=== PATIENT | female | born 1935 | race Two or more races ===

== ENCOUNTER 2023-07-25 13:38 | Inpatient (IN) | payer OTHER ==
[~2023-07-25] VITALS: Ht 147.3 cm; Wt 49.0 kg
[2023-07-25 13:39] VITALS: BP 159/89; PULSE 71; RESP 32; TEMP 97; O2SAT 100
[2023-07-25 14:14] LABS: BLOOD GAS BASE EXCESS -1.3 mmol/L (-2.0-2.0); BLOOD GAS HCO3 22.8 mmol/L (22-26); BLOOD GAS PCO2 35.4 mmHg (35-45); BLOOD GAS PH 7.426 (7.35-7.45)
[2023-07-25 14:15] LABS: BLOOD GAS O2 SAT% 98.8 % (92.0-98.5)
[2023-07-25 14:30] LABS: BASOPHILS % (AUTO) 0.2 % (0.0-2.0); HEMATOCRIT 24.3 % (36-48); HEMOGLOBIN 8.2 g/dL (12.0-16.0); LYMPHOCYTES # (AUTO) 0.6 K/uL (2.5-16.5); LYMPHOCYTES % (AUTO) 5.5 % (20.5-51.1); MEAN CORPUSCULAR HEMOGLOBIN 31 pg (27-31); MEAN CORPUSCULAR HGB CONC 34 g/dL (33-37); MEAN CORPUSCULAR VOLUME 90.8 fL (80-94); MONOCYTES # (AUTO) 0.8 K/uL (0.8-1.0); MONOCYTES % (AUTO) 7.4 % (1.7-9.3); NEUTROPHILS # (AUTO) 9.4 K/uL (1.8-7.7); NEUTROPHILS % (AUTO) 86.9 % (42.2-75.2); PLATELET COUNT (AUTO) 168 K/uL (140-450); RED BLOOD CELL COUNT(AUTO) 2.68 MIL/uL (4.20-5.40); WHITE BLOOD COUNT (AUTO) 10.8 K/uL (4.8-10.8)
[2023-07-25] MEDS ORDERED: PIPERACILLIN/TAZOBACTAM 3.375 GM in DEXTROSE 5% 50 ML IV ONE (14:30)
[2023-07-25] MEDS ORDERED: PIPERACILLIN/TAZOBACTAM 3.375 GM VIAL IV ONE (14:35)
[2023-07-25 14:38] LABS: ANION GAP 12.2 (8-16); CALCIUM 8.8 mg/dL (8.5-10.1); CARBON DIOXIDE 24.8 mmol/L (21-32); CHLORIDE 98 mmol/L (98-107); GLUCOSE 98 mg/dL (74-106); SODIUM SERUM 132 mmol/L (136-145); UREA NITROGEN, BLOOD 20 mg/dL (7-18)
[2023-07-25 14:46] LABS: LACTIC ACID 1.3 mmol/L (0.4-2.0)
[2023-07-25 15:01] LABS: ALANINE AMINOTRANSFERASE 24 U/L (12-78); ALBUMIN 2.6 g/dL (3.4-5.0); ALKALINE PHOSPHATASE 65 U/L (50-136); ASPARTATE AMINOTRANSFERASE 34 U/L (15-37); BILIRUBIN,DIRECT 0.2 mg/dL (0.0-0.3); TOTAL BILIRUBIN 0.6 mg/dL (0.0-1.0); TOTAL PROTEIN, SERUM 6.6 g/dL (6.4-8.2)
[2023-07-25] MEDS ORDERED: FUROSEMIDE 40 MG/4 ML VIAL IVP ONE (15:20)
[2023-07-25] MEDS ORDERED: ASPIRIN 325 MG TAB PO ONE (15:20)
[2023-07-25] MEDS ORDERED: KCL 20 MEQ IN 100 mL PREMIX 200 ML IV ONE (15:20)
[2023-07-25] MEDS ORDERED: ONDANSETRON 4 MG/2 ML VIAL IVP PRN (18:55)
[2023-07-25] MEDS ORDERED: MAGNESIUM OXIDE 400 MG TAB PO PRN (18:55)
[2023-07-25] MEDS ORDERED: POTASSIUM CHL 40 MEQ/ D5-1/2NS 1,000 ML IV SCH (18:55)
[2023-07-25] MEDS ORDERED: MAG SULF 2000 MG/WATER PREMIX 50 ML IV PRN (18:55)
[2023-07-25] MEDS ORDERED: KCL 20 MEQ IN 100 mL PREMIX 200 ML IV PRN (18:55)
[2023-07-25] MEDS ORDERED: ACETAMINOPHEN 325 MG TAB PO PRN (18:55)
[2023-07-25] MEDS ORDERED: LORazepam 1 MG TAB PO PRN (18:55)
[2023-07-25] MEDS ORDERED: POTASSIUM CHLORIDE 10 MEQ TABER PO PRN (18:55)
[2023-07-25] MEDS ORDERED: HYDR200T65 PO (19:21)
[2023-07-25] MEDS ORDERED: DICY10CA2 PO (19:21)
[2023-07-25] MEDS ORDERED: PRED5TAB8 PO (19:21)
[2023-07-25] MEDS ORDERED: XAR10 PO (19:46)
[2023-07-25] MEDS ORDERED: LEFL20TA18 PO (19:46)
[2023-07-25] MEDS ORDERED: OMEP20EC11 PO (19:46)
[2023-07-25 19:56] VITALS: PULSE 75; RESP 22; O2SAT 96; O2SAT 99
[2023-07-25] MEDS: ALBUTEROL SULFATE/IPRATROPIU 3 ML SOL IH SCH (19:56)
[2023-07-25 22:18] LABS: APPEARANCE,URINE CLEAR (CLEAR); BILIRUBIN,URINE NEGATIVE (NEGATIVE); BLOOD, URINE NEGATIVE (NEGATIVE); COLOR,URINE YELLOW (YELLOW); LEUKOCYTE ESTERASE ,URINE NEGATIVE (NEGATIVE); NITRITE, URINE NEGATIVE (NEGATIVE); PROTEIN,URINE NEGATIVE (NEGATIVE); UGLUCOSE NEGATIVE (NEGATIVE); UROBILINOGEN,URINE 0.2 EU/dL (0.2 - 1)
[2023-07-25 23:14] LABS: FLU A ANTIGEN negative (NEGATIVE); FLU B ANTIGEN negative (NEGATIVE)
[2023-07-26] VITALS (9 sets, daily range): BP systolic 135–181; BP diastolic 53–69; PULSE 77–95; RESP 18–24; TEMP 96.8–98.3; O2SAT 92–98
[2023-07-26] MEDS ORDERED: PIPERACILLIN/TAZOBACTAM 3.375 GM VIAL IV ONE ×2 (00:34→06:27)
[2023-07-26] MEDS: PIPERACILLIN/TAZOBACTAM 3.375 GM in DEXTROSE 5% 50 ML IV SCH ×4 (00:38→17:38)
[2023-07-26] MEDS: ALBUTEROL SULFATE/IPRATROPIU 3 ML SOL IH SCH ×4 (00:44→19:42)
[2023-07-26] MEDS ORDERED: ENOXAPARIN 40 MG/0.4 ML SYR SUBQ SCH (09:00)
[2023-07-26 09:39] LABS: BASOPHILS % (AUTO) 0.3 % (0.0-2.0); EOSINOPHILS % (AUTO) 0.2 % (0.0-4.0); HEMATOCRIT 24.8 % (36-48); HEMOGLOBIN 8.2 g/dL (12.0-16.0); LYMPHOCYTES # (AUTO) 0.6 K/uL (2.5-16.5); LYMPHOCYTES % (AUTO) 4.9 % (20.5-51.1); MEAN CORPUSCULAR HEMOGLOBIN 30 pg (27-31); MEAN CORPUSCULAR HGB CONC 33 g/dL (33-37); MEAN CORPUSCULAR VOLUME 91.3 fL (80-94); MONOCYTES # (AUTO) 0.5 K/uL (0.8-1.0); MONOCYTES % (AUTO) 3.7 % (1.7-9.3); NEUTROPHILS # (AUTO) 11.7 K/uL (1.8-7.7); NEUTROPHILS % (AUTO) 90.9 % (42.2-75.2); PLATELET COUNT (AUTO) 168 K/uL (140-450); RED BLOOD CELL COUNT(AUTO) 2.72 MIL/uL (4.20-5.40); RED CELL DISTRIBUTION WIDTH 15.9 % (11.6-13.7); WHITE BLOOD COUNT (AUTO) 12.8 K/uL (4.8-10.8)
[2023-07-26] MEDS: DOCUSATE SODIUM 100 MG GELCAP PO SCH (09:51)
[2023-07-26 10:01] LABS: ALANINE AMINOTRANSFERASE 20 U/L (12-78); ALBUMIN 2.4 g/dL (3.4-5.0); ALKALINE PHOSPHATASE 68 U/L (50-136); ANION GAP 12.6 (8-16); ASPARTATE AMINOTRANSFERASE 35 U/L (15-37); CALCIUM 8.9 mg/dL (8.5-10.1); CARBON DIOXIDE 25.6 mmol/L (21-32); CHLORIDE 100 mmol/L (98-107); CREATININE 1.2 mg/dL (0.6-1.3); GLUCOSE 69 mg/dL (74-106); MAGNESIUM 1.6 mg/dL (1.8-2.4); POTASSIUM 3.2 mmol/L (3.5-5.1); SODIUM SERUM 135 mmol/L (136-145); TOTAL BILIRUBIN 0.7 mg/dL (0.0-1.0); TOTAL PROTEIN, SERUM 6.4 g/dL (6.4-8.2); UREA NITROGEN, BLOOD 24 mg/dL (7-18)
[2023-07-26] MEDS ORDERED: CARV25TA PO (14:03)
[2023-07-26] MEDS ORDERED: SPIR50TA PO (14:03)
[2023-07-26] MEDS ORDERED: hydrALAZINE 25 MG TAB PO PRN (14:40)
[2023-07-26] MEDS: FUROSEMIDE 40 MG/4 ML VIAL IVP SCH ×2 (17:36→21:00)
[2023-07-27] VITALS (8 sets, daily range): BP systolic 151–164; BP diastolic 68–89; PULSE 82–120; RESP 18–22; TEMP 97.4–98.3; O2SAT 91–98
[2023-07-27] MEDS: ALBUTEROL SULFATE/IPRATROPIU 3 ML SOL IH SCH ×3 (00:17→14:02)
[2023-07-27] MEDS: PIPERACILLIN/TAZOBACTAM 3.375 GM in DEXTROSE 5% 50 ML IV SCH ×3 (00:40→12:00)
[2023-07-27 05:43] LABS: BASOPHILS % (AUTO) 0.1 % (0.0-2.0); EOSINOPHILS % (AUTO) 0.1 % (0.0-4.0); HEMATOCRIT 24.5 % (36-48); HEMOGLOBIN 8.2 g/dL (12.0-16.0); LYMPHOCYTES # (AUTO) 0.6 K/uL (2.5-16.5); LYMPHOCYTES % (AUTO) 4.5 % (20.5-51.1); MEAN CORPUSCULAR HEMOGLOBIN 30 pg (27-31); MEAN CORPUSCULAR HGB CONC 34 g/dL (33-37); MEAN CORPUSCULAR VOLUME 90.5 fL (80-94); MONOCYTES # (AUTO) 0.5 K/uL (0.8-1.0); NEUTROPHILS # (AUTO) 12.4 K/uL (1.8-7.7); NEUTROPHILS % (AUTO) 91.3 % (42.2-75.2); PLATELET COUNT (AUTO) 169 K/uL (140-450); RED BLOOD CELL COUNT(AUTO) 2.71 MIL/uL (4.20-5.40); RED CELL DISTRIBUTION WIDTH 16.2 % (11.6-13.7); WHITE BLOOD COUNT (AUTO) 13.6 K/uL (4.8-10.8)
[2023-07-27 06:47] LABS: ALANINE AMINOTRANSFERASE 19 U/L (12-78); ALBUMIN 2.3 g/dL (3.4-5.0); ALKALINE PHOSPHATASE 65 U/L (50-136); ANION GAP 15.6 (8-16); ASPARTATE AMINOTRANSFERASE 32 U/L (15-37); CARBON DIOXIDE 23.8 mmol/L (21-32); CHLORIDE 98 mmol/L (98-107); GLUCOSE 67 mg/dL (74-106); MAGNESIUM 1.5 mg/dL (1.8-2.4); POTASSIUM 3.4 mmol/L (3.5-5.1); SODIUM SERUM 134 mmol/L (136-145); TOTAL BILIRUBIN 0.9 mg/dL (0.0-1.0); TOTAL PROTEIN, SERUM 6.6 g/dL (6.4-8.2); UREA NITROGEN, BLOOD 22 mg/dL (7-18)
[2023-07-27] MEDS ORDERED: ENOXAPARIN 30 MG/0.3 ML SYR SUBQ SCH (09:00)
[2023-07-27] MEDS: DOCUSATE SODIUM 100 MG GELCAP PO SCH (11:22)
[2023-07-27] MEDS: FUROSEMIDE 40 MG/4 ML VIAL IVP SCH (11:23)
[2023-07-27] MEDS ORDERED: FURO20TA8 PO ×2 (11:30→16:34)
[2023-07-27] MEDS ORDERED: AMOX-999 PO ×2 (11:45→16:34)
[2023-07-27] MEDS ORDERED: LACT10CA PO (11:45)
[2023-07-27] MEDS ORDERED: ALBUTEROL SULFATE/IPRATROPIU 3 ML SOL IH ONE (14:20)
[2023-07-27] MEDS ORDERED: predniSONE 5 MG TAB PO SCH (16:03)
[2023-07-27] MEDS ORDERED: ALBU117P INH (16:32)
[2023-07-27] MEDS ORDERED: PRED20TA5 PO (16:32)
[2023-07-27] MEDS ORDERED: carvediloL 12.5 MG TAB PO SCH (21:00)
[2023-07-28] MEDS ORDERED: predniSONE 5 MG TAB PO SCH (09:00)
[2023-07-28] MEDS ORDERED: SPIRONOLACTONE 50 MG TAB PO SCH (09:00)
[2023-07-28] MEDS ORDERED: RIVAROXABAN 10 MG TAB PO SCH (09:00)
== END 2023-07-27 17:00 | disposition home or self-care (01) | DRG 280 ==
LOC: MED 13:38 → MTU 19:20
PROVIDERS: ADMIT Hospitalist; ATTEND Hospitalist
DX: I13.0 Hypertensive heart and chronic kidney disease with heart failure and stage 1 through stage 4 chronic kidney disease, or unspecified chronic kidney disease (principal); I21.4 Non-ST elevation (NSTEMI) myocardial infarction; I50.43 Acute on chronic combined systolic (congestive) and diastolic (congestive) heart failure; J15.9 Unspecified bacterial pneumonia; J96.01 Acute respiratory failure with hypoxia; J18.9 Pneumonia, unspecified organism; N17.9 Acute kidney failure, unspecified; R65.10 Systemic inflammatory response syndrome (SIRS) of non-infectious origin without acute organ dysfunction; I43 Cardiomyopathy in diseases classified elsewhere; Z20.822 Contact with and (suspected) exposure to COVID-19; I50.9 Heart failure, unspecified; N18.30 Chronic kidney disease, stage 3 unspecified; R62.7 Adult failure to thrive; Z88.5 Allergy status to narcotic agent; Z68.22 Body mass index [BMI] 22.0-22.9, adult
CPT/HCPCS: 36415; 36600; 71045; 71250; 80048; 80053; 80076; 81003; 82803; 83605; 83735; 83880; 84484; 85025; 87040; 87081; 87086; 93005; 94640; 96361; 96365; 96375; 97163-GP; 97530; 99291; J1650; J1940; J2543; J3475; J3480; J7060; J7512

== ENCOUNTER 2023-12-22 12:12 | Inpatient (IN) | payer OTHER ==
[~2023-12-22] VITALS: Ht 149.9 cm; Wt 48.8 kg
[~2023-12-22 12:12] MED LIST: ALBU117P INH; AMOX-999 PO; CARV25TA PO; DICY10CA2 PO; FURO20TA8 PO; HYDR-5458 PO; LACT10CA PO; LEFL20TA22 PO; OMEP20EC11 PO; PRED20TA5 PO; PRED5TAB8 PO; SPIR50TA PO; XAR10 PO
[2023-12-22 12:17] VITALS: BP 150/73; PULSE 70; RESP 20; TEMP 94.5; O2SAT 98
[2023-12-22] MEDS: NACL 0.9% 1,000 ML IV ONE (12:35)
[2023-12-22 12:50] LABS: BASOPHILS # (AUTO) 0.1 K/uL (0.00-0.22); BASOPHILS % (AUTO) 3.3 % (0.0-2.0); EOSINOPHILS # (AUTO) 0.2 K/uL (0-0.4); EOSINOPHILS % (AUTO) 3.9 % (0.0-4.0); HEMATOCRIT 31.8 % (36-48); HEMOGLOBIN 10.5 g/dL (12.0-16.0); LYMPHOCYTES # (AUTO) 0.6 K/uL (2.5-16.5); LYMPHOCYTES % (AUTO) 15.3 % (20.5-51.1); MEAN CORPUSCULAR HEMOGLOBIN 28 pg (27-31); MEAN CORPUSCULAR HGB CONC 33 g/dL (33-37); MEAN CORPUSCULAR VOLUME 84.6 fL (80-94); MONOCYTES # (AUTO) 0.3 K/uL (0.8-1.0); MONOCYTES % (AUTO) 7.6 % (1.7-9.3); NEUTROPHILS # (AUTO) 2.7 K/uL (1.8-7.7); NEUTROPHILS % (AUTO) 69.9 % (42.2-75.2); PLATELET COUNT (AUTO) 156 K/uL (140-450); RED BLOOD CELL COUNT(AUTO) 3.76 MIL/uL (4.20-5.40); WHITE BLOOD COUNT (AUTO) 3.8 K/uL (4.8-10.8)
[2023-12-22 12:53] LABS: BILIRUBIN,URINE NEGATIVE (NEGATIVE); BLOOD, URINE NEGATIVE (NEGATIVE); COLOR,URINE YELLOW (YELLOW); LEUKOCYTE ESTERASE ,URINE 1+ (NEGATIVE); NITRITE, URINE NEGATIVE (NEGATIVE); PROTEIN,URINE 1+ (NEGATIVE); UGLUCOSE NEGATIVE (NEGATIVE); UROBILINOGEN,URINE 0.2 EU/dL (0.2 - 1)
[2023-12-22 12:54] LABS: APPEARANCE,URINE SLIGHTLY CLOUDY (CLEAR)
[2023-12-22 13:03] LABS: BACTERIA,URINE 10-30 (MOD) /HPF (None Seen); RBC,URINE 0-5 /HPF (0-5); SQUAMOUS EPITHELIAL CELL,UR 0-3 (FEW) /LPF (0-3 (FEW))
[2023-12-22 13:09] LABS: INR 0.99 (0.8-1.2); PARTIAL THROMBOPLASTIN TIME 24.5 secs (22-35.6); PROTHROMBIN TIME 10.4 secs (10.8-13.4)
[2023-12-22 13:14] LABS: ANION GAP 15.8 (8-16); CALCIUM 8.7 mg/dL (8.5-10.1); CHLORIDE 98 mmol/L (98-107); CREATININE 1.1 mg/dL (0.6-1.3); GLUCOSE 125 mg/dL (74-106); POTASSIUM 3.8 mmol/L (3.5-5.1); SODIUM SERUM 129 mmol/L (136-145); UREA NITROGEN, BLOOD 23 mg/dL (7-18)
[2023-12-22 13:20] LABS: ALANINE AMINOTRANSFERASE 21 U/L (12-78); ALKALINE PHOSPHATASE 104 U/L (50-136); ASPARTATE AMINOTRANSFERASE 20 U/L (15-37); BILIRUBIN,DIRECT 0.1 mg/dL (0.0-0.3); CREATINE KINASE, TOTAL 80 U/L (26-192); TOTAL BILIRUBIN 0.4 mg/dL (0.0-1.0); TOTAL PROTEIN, SERUM 6.2 g/dL (6.4-8.2)
[2023-12-22] MEDS ORDERED: cefTRIAXone 1,000 MG VIAL ONE (14:50)
[2023-12-22] MEDS ORDERED: ONDANSETRON 4 MG/2 ML VIAL IVP PRN (15:00)
[2023-12-22] MEDS ORDERED: ACETAMINOPHEN 325 MG TAB PO PRN (15:00)
[2023-12-22] MEDS ORDERED: MORPHINE SULFATE 2 MG/ML SYR IVP PRN (15:00)
[2023-12-22] MEDS: ACETAMINOPHEN EXTRA STRENGTH 500 MG TAB PO ONE (15:11)
[2023-12-22] MEDS: KETOROLAC 30 MG/ML VIAL IVP ONE (15:17)
[2023-12-22] MEDS: NACL 0.9% 1,000 ML IV SCH (15:23)
[2023-12-22 20:00] VITALS: BP 150/66; PULSE 71; RESP 18; TEMP 97.6; O2SAT 97
[2023-12-22] MEDS ORDERED: HYDR-3233 PO (23:26)
[2023-12-22] MEDS ORDERED: ALPOS OP (23:26)
[2023-12-22] MEDS ORDERED: XALOS OP (23:26)
[2023-12-22] MEDS ORDERED: FOS70 PO (23:26)
[2023-12-22] MEDS ORDERED: POTA10TA70 PO (23:26)
[2023-12-22] MEDS ORDERED: LOSA-272 PO (23:26)
[2023-12-23] VITALS (7 sets, daily range): BP systolic 141–186; BP diastolic 59–78; PULSE 75–93; RESP 16–18; TEMP 97.5–98.4; O2SAT 95–98
[2023-12-23 06:49] LABS: BASOPHILS # (AUTO) 0.1 K/uL (0.00-0.22); BASOPHILS % (AUTO) 2.4 % (0.0-2.0); EOSINOPHILS # (AUTO) 0.1 K/uL (0-0.4); EOSINOPHILS % (AUTO) 3.1 % (0.0-4.0); HEMATOCRIT 28.1 % (36-48); LYMPHOCYTES # (AUTO) 0.5 K/uL (2.5-16.5); LYMPHOCYTES % (AUTO) 10.9 % (20.5-51.1); MEAN CORPUSCULAR HEMOGLOBIN 27 pg (27-31); MEAN CORPUSCULAR HGB CONC 32 g/dL (33-37); MEAN CORPUSCULAR VOLUME 85.4 fL (80-94); MONOCYTES # (AUTO) 0.4 K/uL (0.8-1.0); MONOCYTES % (AUTO) 8.1 % (1.7-9.3); NEUTROPHILS # (AUTO) 3.3 K/uL (1.8-7.7); NEUTROPHILS % (AUTO) 75.5 % (42.2-75.2); PLATELET COUNT (AUTO) 139 K/uL (140-450); RED BLOOD CELL COUNT(AUTO) 3.29 MIL/uL (4.20-5.40); RED CELL DISTRIBUTION WIDTH 15.2 % (11.6-13.7); WHITE BLOOD COUNT (AUTO) 4.4 K/uL (4.8-10.8)
[2023-12-23 07:32] LABS: ANION GAP 14.5 (8-16); CARBON DIOXIDE 18.7 mmol/L (21-32); CHLORIDE 102 mmol/L (98-107); CREATININE 0.9 mg/dL (0.6-1.3); GLUCOSE 72 mg/dL (74-106); POTASSIUM 3.2 mmol/L (3.5-5.1); SODIUM SERUM 132 mmol/L (136-145); UREA NITROGEN, BLOOD 21 mg/dL (7-18)
[2023-12-23] MEDS: hydrALAZINE 20 MG/ML VIAL IVP SCH (08:42)
[2023-12-23] MEDS: POTASSIUM CHLORIDE 20% 40 MEQ/15 ML UDC PO SCH (09:19)
[2023-12-23] MEDS: MAG SULF 2000 MG/WATER PREMIX 50 ML IV SCH (09:38)
[2023-12-23] MEDS ORDERED: ROC2I IV (14:50)
[2023-12-23] MEDS: MELATONIN 3 MG TAB PO PRN (21:57)
[2023-12-24 04:00] VITALS: BP 155/81; PULSE 83; RESP 18; TEMP 98; O2SAT 97
[2023-12-24 08:00] VITALS: BP 176/74; PULSE 74; RESP 18; TEMP 98; O2SAT 97; O2SAT 98
[2023-12-24] MEDS ORDERED: CEPH-588 PO (15:32)
[2023-12-24 16:00] VITALS: BP 134/68; PULSE 68; RESP 17; TEMP 98; O2SAT 97
[2023-12-24 20:00] VITALS: BP 208/97; PULSE 83; RESP 19; TEMP 97.7; O2SAT 93
[2023-12-24] MEDS ORDERED: hydrALAZINE 25 MG TAB PO PRN (20:00)
[2023-12-24] MEDS ORDERED: INSULIN LISPRO SLIDING SCALE 100 UNITS/ML VIAL SUBQ PRN (20:05)
[2023-12-24] MEDS ORDERED: DEXTROSE 50% 50 ML SYR IVP PRN (20:05)
[2023-12-24] MEDS: BLOOD GLUCOSE MONITORING 1 DEV DEV FS SCH (20:16)
[2023-12-24] MEDS: LOSARTAN 50 MG TAB PO SCH (20:17)
[2023-12-24] MEDS: carvediloL 12.5 MG TAB PO SCH (20:17)
[2023-12-24] MEDS: hydrALAZINE 25 MG TAB PO SCH (20:17)
[2023-12-24] MEDS: BRIMONIDINE TARTRATE 0.2% OP 5 ML BTL OP SCH (20:18)
[2023-12-24] MEDS: LATANOPROST 0.005% OP 2.5 ML BTL OP SCH (20:18)
[2023-12-24 21:50] VITALS: BP 141/60; PULSE 78
[2023-12-25 04:00] VITALS: BP 144/69; PULSE 73; RESP 18; TEMP 97.7; O2SAT 95
[2023-12-25 08:00] VITALS: RESP 18; TEMP 98; O2SAT 98
[2023-12-25] MEDS: FUROSEMIDE 20 MG TAB PO SCH (09:52)
[2023-12-25] MEDS: PANTOPRAZOLE 40 MG TABEC PO SCH (09:53)
[2023-12-25] MEDS: SPIRONOLACTONE 50 MG TAB PO SCH (09:53)
[2023-12-25] MEDS: predniSONE 5 MG TAB PO SCH (10:05)
[2023-12-25] MEDS: HYDROXYCHLOROQUINE 200 MG TAB PO SCH (10:05)
[2023-12-25 12:00] VITALS: BP 134/68; PULSE 68; RESP 17; TEMP 98; O2SAT 97
[2023-12-25] MEDS ORDERED: MELATONIN 3 MG TAB PO PRN (12:55)
[2023-12-25] MEDS: POTASSIUM CHLORIDE 10 MEQ TABER PO SCH (14:29)
[2023-12-25] MEDS ORDERED: CEPH-588 PO (18:39)
[2023-12-25] MEDS: RIVAROXABAN 10 MG TAB PO SCH (18:41)
== END 2023-12-25 19:35 | DRG 73 ==
LOC: MED 12:12 → MTU 14:58
PROVIDERS: ADMIT Hospitalist; ATTEND Hospitalist
DX: G90.8 Other disorders of autonomic nervous system (principal); G93.41 Metabolic encephalopathy; N39.0 Urinary tract infection, site not specified; R65.10 Systemic inflammatory response syndrome (SIRS) of non-infectious origin without acute organ dysfunction; I95.9 Hypotension, unspecified; I50.9 Heart failure, unspecified; I11.0 Hypertensive heart disease with heart failure; K44.9 Diaphragmatic hernia without obstruction or gangrene; D63.8 Anemia in other chronic diseases classified elsewhere; Z79.899 Other long term (current) drug therapy; E86.0 Dehydration
CPT/HCPCS: 36415; 70450; 71045; 80048; 80076; 81001; 82550; 82553; 82948; 83605; 83735; 83880; 84484; 85025; 85610; 85730; 87040; 87081; 87086; 87186; 93005; 96361; 96365; 96375; 97110; 97112; 97116; 97163-GP; 97530; 99285; J0360; J0696; J1815; J1885; J3475; J7060; J7512; Q0092